=== PATIENT | male | born 1995 ===

== ENCOUNTER 2017-10-03 16:24 | Emergency (ER) | payer OTHER ==
--- NOTE | 2017-10-03 16:50 | EDM.PDOC ---
ED HPI GENERAL MEDICAL PROBLEM - General Chief Complaint: Back Pain or Injury Stated Complaint: BACK & ABDOMIN PAIN Time Seen by Provider: 10/03/17 16:47 Source of Information: Reports: Patient History Limitations: Reports: No Limitations - History of Present Illness INITIAL COMMENTS - FREE TEXT/NARRATIVE: History of present illness: [22-year-old male comes in complaining of cough, fevers, chills patient verbalizes concern that he might have a pneumonia as he has had in the past and the symptoms were similar.] Review of systems: As per history of present illness and below otherwise all systems reviewed and negative. Past medical history: As per history of present illness and as reviewed below otherwise noncontributory. Surgical history: As per history of present illness and as reviewed below otherwise noncontributory. Social history: No reported history of drug or alcohol abuse. Family history: As per history of present illness and as reviewed below otherwise noncontributory. Physical exam: HEENT: Atraumatic, normocephalic, pupils reactive, negative for conjunctival pallor or scleral icterus, mucous membranes moist, throat clear, neck supple, nontender, trachea midline. Lungs: Clear to auscultation, breath sounds equal bilaterally, chest nontender. Heart: S1S2, regular, negative for clicks, rubs, or JVD. Abdomen: Soft, nondistended, nontender. Negative for masses or hepatosplenomegaly. Positive for costovertebral tenderness. Pelvis: Stable nontender. Genitourinary: Deferred. Rectal: Deferred. Extremities: Atraumatic, negative for cords or calf pain. Neurovascular unremarkable. Neuro: Awake, alert, oriented. Cranial nerves II through XII unremarkable. Cerebellum unremarkable. Motor and sensory unremarkable throughout. Exam nonfocal. Discussion potential of urinary stone with patient as well as mesenteric adenopathy we'll give antibiotics pain medicine Diagnostics: [CBC, CMP, CT of abdomen and pelvis, UA] Therapeutics: [IV fluid, Toradol, Norflex, Dilaudid, Zofran] Impression: .#1[Mesenteric adenitis #2 hematuria] Plan: [Antibiotic, pain medicine follow-up with PCP] Definitive disposition and diagnosis as appropriate pending reevaluation and review of above. Middle Back Pain Score (Numeric/FACES): 6 - Related Data Allergies Allergy/AdvReac Type Severity Reaction Status Date / Time No Known Allergies Allergy Verified 10/03/17 16:26 Home Meds: Home Meds . [No Known Home Meds] 10/03/17 [History] Past Medical History - Past Health History Medical/Surgical History: Denies Medical/Surgical History Social & Family History - Family History Family Medical History: Noncontributory - Tobacco Use Smoking Status *Q: Current Every Day Smoker Years of Tobacco use: 3 Packs/Tins Daily: 1 Used Tobacco, but Quit: No Second Hand Smoke Exposure: Yes - Caffeine Use Caffeine Use: Reports: Coffee, Soda Caffeine Use Comment: 3 cups per day - Recreational Drug Use Recreational Drug Use: No ED ROS GENERAL - Review of Systems Review Of Systems: See Below (History of present illness) ED EXAM, GENERAL - Physical Exam Exam: See Below (See history of present illness) Course - Vital Signs Last Recorded V/S: Last Vital Signs Temp 36.4 C 10/03/17 16:26 Pulse 77 10/03/17 19:54 Resp 18 10/03/17 19:54 BP 111/66 10/03/17 19:54 Pulse Ox 98 10/03/17 19:54 - Orders/Labs/Meds Orders: Active Orders 24 hr Category Date Time Status Abdomen Pelvis wo Cont [CT] Stat Exams 10/03/17 19:16 Ordered Chest 2V [CR] Stat Exams 10/03/17 16:50 Taken Orphenadrine [Norflex] Med 10/03/17 18:30 Active 60 mg IM Q12H Medication Orders Orphenadrine Citrate (Norflex) 60 mg IM Q12H TOMY Last Admin: 10/03/17 18:51 Dose: 60 mg Labs: Laboratory Tests 10/03/17 Range/Units 18:51 Urine Color YELLOW Urine Appearance CLEAR Urine pH 6.5 (5.0-8.0) Ur Specific [place] 1.020 (1.001-1.035) Urine Protein NEGATIVE (NEGATIVE) mg/dL Urine Glucose (UA) NEGATIVE (NEGATIVE) mg/dL Urine Ketones NEGATIVE (NEGATIVE) mg/dL Urine Occult Blood LARGE H (NEGATIVE) Urine Nitrite NEGATIVE (NEGATIVE) Urine Bilirubin NEGATIVE (NEGATIVE) Urine Urobilinogen 1.0 (<2.0) EU/dL Ur Leukocyte Esterase NEGATIVE (NEGATIVE) Urine RBC 0-1 (0-2/HPF) Urine WBC 0-1 (0-5/HPF) Ur Epithelial Cells OCCASIONAL (NONE-FEW) Amorphous Sediment LIGHT (NEGATIVE) Urine Bacteria 1+ H (NEGATIVE) Urine Mucus MODERATE (NONE-MOD) Meds: Medications Generic Name Dose Route Start Last Admin Trade Name Freq PRN Reason Stop Dose Admin Orphenadrine Citrate 60 mg 10/03/17 18:30 10/03/17 18:51 Norflex IM 60 mg Q12H TOMY Administration Discontinued Medications Generic Name Dose Route Start Last Admin Trade Name Freq PRN Reason Stop Dose Admin Hydromorphone HCl 1 mg 10/03/17 19:42 10/03/17 19:52 Dilaudid IVPUSH 10/03/17 19:43 1 mg ONETIME ONE Administration Sodium Chloride 1,000 mls @ 999 mls/hr 10/03/17 19:16 10/03/17 19:21 Normal Saline IV 10/03/17 20:16 999 mls/hr STAT ONE Administration Ketorolac Tromethamine 60 mg 10/03/17 17:40 10/03/17 18:02 Toradol IM 10/03/17 17:41 60 mg ONETIME ONE Administration Departure - Departure Time of Disposition: 21:14 Disposition: Home, Self-Care 01 Condition: Good Clinical Impression: Mesenteric lymphadenopathy - Discharge Information Referrals: PCP,None [Primary Care Provider] - Forms: ED Department Discharge Additional Instructions: The following information is given to patients seen in the emergency department who are being discharged to home. This information is to outline your options for follow-up care. We provide all patients seen in our emergency department with a follow-up referral. The need for follow-up, as well as the timing and circumstances, are variable depending upon the specifics of your emergency department visit. If you don't have a primary care physician on staff, we will provide you with a referral. We always advise you to contact your personal physician following an emergency department visit to inform them of the circumstance of the visit and for follow-up with them and/or the need for any referrals to a consulting specialist. The emergency department will also refer you to a specialist when appropriate. This referral assures that you have the opportunity for follow-up care with a specialist. All of these measure are taken in an effort to provide you with optimal care, which includes your follow-up. Under all circumstances we always encourage you to contact your private physician who remains a resource for coordinating your care. When calling for follow-up care, please make the office aware that this follow-up is from your recent emergency room visit. If for any reason you are refused follow-up, please contact the [facility] Emergency Department at and asked to speak to the emergency department charge nurse. Take medication as direct Up with PCP in 2-3 days Return to ED as needed as discussed - My Orders Last 24 Hours: My Active Orders 10/03/17 16:50 Chest 2V [CR] Stat 10/03/17 18:30 Orphenadrine [Norflex] 60 mg IM Q12H 10/03/17 19:16 Abdomen Pelvis wo Cont [CT] Stat - Assessment/Plan Last 24 Hours: My Active Orders 10/03/17 16:50 Chest 2V [CR] Stat 10/03/17 18:30 Orphenadrine [Norflex] 60 mg IM Q12H 10/03/17 19:16 Abdomen Pelvis wo Cont [CT] Stat
[2017-10-03] MEDS ORDERED: Ketorolac 60 MG/2 ML SDV IM ONE (17:40)
[2017-10-03] MEDS ORDERED: Sodium Chloride 0.9% 1,000 ML IV ONE (19:16)
[2017-10-03] MEDS ORDERED: HYDROmorphone 2 MG/ML Syringe IVPUSH ONE (19:42)
--- NOTE | 2017-10-04 15:34 | CR ---
EXAM DATE: 10/03/17 PATIENT'S AGE: 22 Patient: VALENTIN SANCHEZ Facility: [place], [place] Site . Site : 1995 Study: XRay Chest [id number] 5:21:27 PM Ordering Physician: Doctor Whittington Final Report: INDICATION: ABDOMEN, STOMACH, AND BACK PAIN FOR 3 DAYS WITH CHILLS AND SWEATS. NO KNOWN FEVER. TECHNIQUE: Chest 2 views. COMPARISON: None. FINDINGS: Cardiovascular and mediastinum: Heart size and vasculature are normal in caliber and appearance. Mediastinum is within normal limits. Lungs and pleural spaces: Lungs are clear. No sign of infiltrate or mass. No sign of pleural effusion. No pneumothorax. Bones and soft tissues: No significant findings. IMPRESSION: Unremarkable chest. Dictated by: Dayron Marcano MD @ 10/03/2017 18:03:08 (Electronic Signature) Report Signed by Proxy. ADITI
--- NOTE | 2017-10-04 15:47 | CT ---
EXAM DATE: 10/03/17 PATIENT'S AGE: 22 Patient: VALENTIN SANCHEZ Facility: [place], [place] Site . Site : 1995 Study: CT Abdomen/Pelvis [id number]/28/[id number] 8:17:50 PM Ordering Physician: Doctor Whittington Final Report: INDICATION: Abdominal pain. TECHNIQUE: CT abdomen and pelvis without contrast. COMPARISON: None. FINDINGS: Lower chest: Unremarkable. Liver: Unremarkable. Spleen: Unremarkable. Pancreas: Unremarkable. Gallbladder and bile ducts: Unremarkable. Kidneys: Unremarkable. No kidney or ureteral stones and no hydronephrosis. Adrenal glands: Unremarkable. GI tract: There is mild fluid retention within distal small bowel loops. No evidence of high-grade bowel obstruction. Calcified appendicolith is noted in the appendix. No inflammatory changes involving the appendix. Remainder of the GI tract is unremarkable. Scattered mild mesenteric lymphadenopathy. No free air or free fluid. Vascular structures: Unremarkable. Pelvic Organs: Unremarkable. Bones: No acute abnormality IMPRESSION: Mild mesenteric lymphadenopathy. There is also fluid retention within distal small bowel. Findings may represent sequela of a nonspecific enteritis or possibly mesenteric adenitis. Appendicolith within the appendix. No inflammatory changes to suggest acute appendicitis. Dictated by Wilmar Alfaro MD @ 10/03/2017 9:05:35 PM Dictated by: Wilmar Alfaro MD @ 10/03/2017 21:06:13 (Electronic Signature) Report Signed by Proxy. [facility] CENTERJorge Luis
== END 2017-10-03 21:25 | disposition home or self-care (01) ==
LOC: MW.ED 16:24
DX: I88.0 Nonspecific mesenteric lymphadenitis (principal); R31.9 Hematuria, unspecified; F17.210 Nicotine dependence, cigarettes, uncomplicated
CPT/HCPCS: 71020; 74176; 81001; 96361; 96372; 96374; 99284; J1170; J1885; J2360; J7040; 99283

== ENCOUNTER 2017-10-10 11:11 | Emergency (ER) | payer OTHER ==
[2017-10-10] MEDS ORDERED: Ketorolac 30 MG/ML SDV IVPUSH ONE (12:00)
[2017-10-10 12:17] LABS: CHLORIDE,CL 106 mmol/L (98-110); SODIUM,NA 138 mmol/L (136-146)
--- NOTE | 2017-10-10 12:17 | EDM.PDOC ---
ED HPI GENERAL MEDICAL PROBLEM - General Chief Complaint: Abdominal Pain Stated Complaint: GROIN PAIN Time Seen by Provider: 10/10/17 12:00 Source of Information: Reports: Patient History Limitations: Reports: No Limitations - History of Present Illness INITIAL COMMENTS - FREE TEXT/NARRATIVE: History of present illness: [22-year-old male presenting with complaints of left lower quadrant pain. Patient was seen by myself last week with complaints of cold and cough as well as abdominal pain. Patient was determined to have some mesenteric adenitis as well as small renal calculi. Patient indicates that any of his cold symptoms are significantly improved if not resolved but now his lower abdominal pain is significantly worse.] Review of systems: As per history of present illness and below otherwise all systems reviewed and negative. Past medical history: As per history of present illness and as reviewed below otherwise noncontributory. Surgical history: As per history of present illness and as reviewed below otherwise noncontributory. Social history: No reported history of drug or alcohol abuse. Family history: As per history of present illness and as reviewed below otherwise noncontributory. Physical exam: HEENT: Atraumatic, normocephalic, pupils reactive, negative for conjunctival pallor or scleral icterus, mucous membranes moist, throat clear, neck supple, nontender, trachea midline. Lungs: Clear to auscultation, breath sounds equal bilaterally, chest nontender. Heart: S1S2, regular, negative for clicks, rubs, or JVD. Abdomen: Soft, nondistended, tenderness in left lower quadrant Negative for masses or hepatosplenomegaly. Negative for costovertebral tenderness. Pelvis: Stable nontender. Genitourinary: Deferred. Rectal: Deferred. Extremities: Atraumatic, negative for cords or calf pain. Neurovascular unremarkable. Neuro: Awake, alert, oriented. Cranial nerves II through XII unremarkable. Cerebellum unremarkable. Motor and sensory unremarkable throughout. Exam nonfocal. Global assessment is benign save the subjective complaint as noted in history of present illness. Mesenteric lymphadenopathy resolved no signs of renal calculi or remnants noted on CT. CT is negative for any pathology Diagnostics: [CT of abdomen] Therapeutics: [IV fluids Toradol] Impression: [Stomach pain] Plan: [Rest hydrate off of work for 48 hours] Definitive disposition and diagnosis as appropriate pending reevaluation and review of above. Left Groin Pain Score (Numeric/FACES): 10 - Related Data Allergies Allergy/AdvReac Type Severity Reaction Status Date / Time adhesive Allergy Rash Verified 10/10/17 11:24 latex Allergy Rash Verified 10/10/17 11:24 Home Meds: Home Meds . [No Known Home Meds] 10/03/17 [History] Past Medical History - Past Health History Medical/Surgical History: Denies Medical/Surgical History Social & Family History - Family History Family Medical History: Noncontributory - Tobacco Use Smoking Status *Q: Current Every Day Smoker Years of Tobacco use: 3 Packs/Tins Daily: 1 Used Tobacco, but Quit: No Second Hand Smoke Exposure: Yes - Caffeine Use Caffeine Use: Reports: Energy Drinks, Soda Caffeine Use Comment: 3 cups per day - Recreational Drug Use Recreational Drug Use: No ED ROS GENERAL - Review of Systems Review Of Systems: See Below (History of present illness) ED EXAM, GENERAL - Physical Exam Exam: See Below (History of present illness) Course - Vital Signs Last Recorded V/S: Last Vital Signs Temp 37.1 C 10/10/17 11:20 Pulse 106 H 10/10/17 11:20 Resp 22 H 10/10/17 11:20 BP 111/75 10/10/17 11:20 Pulse Ox 100 10/10/17 11:20 - Orders/Labs/Meds Orders: Active Orders 24 hr Category Date Time Status Abdomen Pelvis w Cont [CT] Stat Exams 10/10/17 12:05 Taken Labs: Laboratory Tests 10/10/17 10/10/17 Range/Units 11:23 11:23 WBC 5.55 (4.0-11.0) K/uL RBC 4.66 (4.50-5.90) M/uL Hgb 14.6 (13.0-17.0) g/dL Hct 41.5 (38.0-50.0) % MCV 89.1 (80.0-98.0) fL MCH 31.3 (27.0-32.0) pg MCHC 35.2 (31.0-37.0) g/dL RDW Std Deviation 38.0 (28.0-62.0) fl RDW Coeff of Harvey 12 (11.0-15.0) % Plt Count 210 (150-400) K/uL MPV 10.40 (7.40-12.00) fL Neut % (Auto) 59.5 (48.0-80.0) % Lymph % (Auto) 33.0 (16.0-40.0) % Miner % (Auto) 6.8 (0.0-15.0) % Eos % (Auto) 0.5 (0.0-7.0) % Baso % (Auto) 0.2 (0.0-1.5) % Neut # (Auto) 3.3 (1.4-5.7) K/uL Lymph # (Auto) 1.8 (0.6-2.4) K/uL Miner # (Auto) 0.4 (0.0-0.8) K/uL Eos # (Auto) 0.0 (0.0-0.7) K/uL Baso # (Auto) 0.0 (0.0-0.1) K/uL Nucleated RBC % 0.0 /100WBC Nucleated RBCs # 0 K/uL Sodium 138 (136-146) mmol/L Potassium 3.5 (3.5-5.1) mmol/L Chloride 106 (98-110) mmol/L Carbon Dioxide 25 (21-31) mmol/L BUN 11 (6.0-23.0) mg/dL Creatinine 0.8 (0.6-1.5) mg/dL Est Cr Clr Drug Dosing 130.09 mL/min Estimated GFR (MDRD) > 60.0 ml/min Glucose 126 H (60-110) mg/dL Calcium 9.6 (8.8-10.8) mg/dL Total Bilirubin 0.6 (0.1-1.5) mg/dL AST 21 (5-40) IU/L ALT 24 (8-54) IU/L Alkaline Phosphatase 81 (40-150) Total Protein 7.2 (6.0-8.0) g/dL Albumin 4.5 (3.5-5.0) g/dL Globulin 2.7 (2.0-3.5) g/dL Albumin/Globulin Ratio 1.7 (1.3-2.8) Meds: Medications Discontinued Medications Generic Name Dose Route Start Last Admin Trade Name Freq PRN Reason Stop Dose Admin Hydromorphone HCl 2 mg 10/10/17 12:36 10/10/17 12:43 Dilaudid IVPUSH 10/10/17 12:37 2 mg ONETIME ONE Administration Iopamidol 80 ml 10/10/17 13:02 10/10/17 13:03 Isovue Multipack-370 (76%) IVPUSH 10/10/17 13:03 80 ml ONETIME STA Administration Ketorolac Tromethamine 30 mg 10/10/17 12:00 10/10/17 12:05 Toradol IVPUSH 10/10/17 12:01 30 mg ONETIME ONE Administration Ondansetron HCl 4 mg 10/10/17 12:36 10/10/17 12:43 Zofran IVPUSH 10/10/17 12:37 4 mg ONETIME ONE Administration Departure - Departure Time of Disposition: 13:43 Disposition: Home, Self-Care 01 Condition: Good Clinical Impression: Abdominal pain - Discharge Information Instructions: Abdominal Pain, Adult, [id number], Viral Gastroenteritis, Adult , [id number] Referrals: PCP,None [Primary Care Provider] - Forms: ED Department Discharge Additional Instructions: The following information is given to patients seen in the emergency department who are being discharged to home. This information is to outline your options for follow-up care. We provide all patients seen in our emergency department with a follow-up referral. The need for follow-up, as well as the timing and circumstances, are variable depending upon the specifics of your emergency department visit. If you don't have a primary care physician on staff, we will provide you with a referral. We always advise you to contact your personal physician following an emergency department visit to inform them of the circumstance of the visit and for follow-up with them and/or the need for any referrals to a consulting specialist. The emergency department will also refer you to a specialist when appropriate. This referral assures that you have the opportunity for follow-up care with a specialist. All of these measure are taken in an effort to provide you with optimal care, which includes your follow-up. Under all circumstances we always encourage you to contact your private physician who remains a resource for coordinating your care. When calling for follow-up care, please make the office aware that this follow-up is from your recent emergency room visit. If for any reason you are refused follow-up, please contact the [facility] Emergency Department at and asked to speak to the emergency department charge nurse. There was no new findings on your CT, the findings from your previous CT have now resolved. Abdominal pain you're experiencing could be consistent with a gastroenteritis or other viral syndrome Your labs are entirely within normal limits and her inconsistent with an infectious process Rest and hydrate the next 48 hours follow-up with primary care within that timeframe for further tracking and evaluation Return to ED as needed as discussed - My Orders Last 24 Hours: My Active Orders 10/10/17 12:05 Abdomen Pelvis w Cont [CT] Stat - Assessment/Plan Last 24 Hours: My Active Orders 10/10/17 12:05 Abdomen Pelvis w Cont [CT] Stat
[2017-10-10] MEDS ORDERED: Ondansetron 4 MG/2 ML SDV IVPUSH ONE (12:36)
[2017-10-10] MEDS ORDERED: HYDROmorphone 2 MG/ML Syringe IVPUSH ONE (12:36)
[2017-10-10] MEDS ORDERED: Iopamidol 755 MG/ML 500 ML Multipack Bottle IVPUSH STA (13:02)
--- NOTE | 2017-10-10 14:28 | CT ---
EXAM DATE: 10/10/17 PATIENT'S AGE: 22 Patient: VALENTIN SANCHEZ Facility: [place], [place] Site . Site : 1995 Study: CT Abdomen/Pelvis [id number] 1:12:37 PM Ordering Physician: Doctor Whittington Final Report: INDICATION: left groin pain hx of kidney stones HISTORY: Groin pain. Kidney stones. COMPARISON: CT of the abdomen and pelvis 10/03/2017. TECHNIQUE: CT of the abdomen and pelvis. 80 cc of Isovue-370 IV. Coronal/sagittal reconstruction images. FINDINGS: Lung bases: There is no pleural or pericardial effusion. The heart size is normal. The lung bases demonstrate no acute airspace disease. No basilar pneumothorax. Abdomen/pelvis: No solid hepatic mass. No dilation of intrahepatic biliary radicals. No perihepatic ascites. No inflammatory changes at the gallbladder. Normal caliber biliary tree. No pancreatic mass. No pancreatic duct dilation. No glandular atrophy. Symmetric nephrograms. No solid renal mass. No perinephric fluid. Spleen size is normal. No free air. Urinary bladder and prostate are within normal limits. There is no wall thickening within the small bowel or colon. There is no perienteric edema. No transition point to indicate a mechanical small bowel or colonic obstruction. There is an appendicolith in the appendix in the right lower quadrant. No findings to indicate acute appendicitis. This is a stable finding from 10/03/2017. There is no abdominal aortic aneurysm. The celiac axis, SMA, and TOYA are patent. No adenopathy seen by size criteria in the pelvis, retroperitoneum, gastrohepatic ligament. The bone windows demonstrate no lytic or blastic bone lesions. The alignment is preserved. On sagittal reconstruction images, vertebral body heights and alignment are maintained. IMPRESSION: 1. There is no obstructive urolith, hydronephrosis, or delayed nephrogram. 2. No evidence for a small bowel or colonic obstruction. 3. Normal caliber appendix. 4. No abdominal or pelvic lymphadenopathy. Dictated by Marlo Lee MD @ 10/10/2017 1:35:50 PM Dictated by: Marlo Lee MD @ 10/10/2017 13:36:13 (Electronic Signature) Report Signed by Proxy. [facility]OSPITALJorge Luis
== END 2017-10-10 14:02 | disposition home or self-care (01) ==
LOC: MW.ED 11:11
DX: R10.32 Left lower quadrant pain (principal); F17.210 Nicotine dependence, cigarettes, uncomplicated; Z91.040 Latex allergy status; Z91.048 Other nonmedicinal substance allergy status
CPT/HCPCS: 36415; 74177; 80053; 85025; 96374; 96375; 99284; J1170; J1885; J2405; Q9967